=== PATIENT | female | born 1945 | race Caucasian/White ===

== ENCOUNTER 2023-10-29 18:02 | Emergency (ER) | payer MEDICARE, SELFPAY ==
[2023-10-29 18:27] VITALS: BP 198/70; PULSE 74; RESP 18; TEMP 36.7; O2SAT 98; BMI 31.6
--- NOTE | 2023-10-29 18:33 | ED_ITS ---
HPI - Fall General: Chief Complaint: Fall Stated Complaint: Fell Rt Arm Injury Time Seen by Provider: 10/29/23 18:33 History of Present Illness: 78-year-old female comes in today for co mplaints of injury to the right shoulder. Patient had slipped on some wet grass causing her to fall onto her right arm. Patient has decreased range of motion due to pain. Distal pulses are intact. Distal sensation is intact. Patient has a history of coronary artery disease with bypass. Patient does take medications for blood pressure, cholesterol, and Eliquis. Review of Systems General: Reports: 10 or more systems reviewed and unremarkable except in HPI and below Musc: Reports: extremity pain Physical Exam Const: COMMON NORMALS: alert HENMT: COMMON NORMALS: normocephalic HEAD & SCALP: normocephalic Neck/C-Spine: COMMON NORMALS: full ROM Resp: COMMON NORMALS: normal respiratory effort and clear to auscultation bilaterally AUSCULTATION: clear to auscultation bilaterally Cardio: COMMON NORMALS: regular rate and regular rhythm RATE: regular rate RHYTHM: regular rhythm GI: COMMON NORMALS: Soft to palpation PALPATION: Yes Soft to palpation Back/Pelvis: COMMON NORMALS: thoracic and lumbar spine normal to inspection Extremity: RIGHT UPPER EXTREMITY: Yes shoulder joint (Decreased range of motion, anterior tenderness, possible dislocation) Right shoulder: Yes Right shoulder joint inspection exam, Yes palpation, Yes Right shoulder joint ROM exam and Yes Right shoulder joint neurovascular exam Neuro: SENSORIUM/ORIENTATION: Yes alert Skin: COMMON NORMALS: turgor normal GENERAL SKIN EXAM: turgor normal Course Vital Signs: Vital signs: Vital Signs Temperature 98.1 F 10/29/23 18:27 Pulse Rate 74 10/29/23 18:27 Respiratory Rate 20 H 10/29/23 18:56 Blood Pressure 198/70 10/29/23 18:27 Pulse Oximetry 98 10/29/23 18:27 Oxygen Delivery Me thod Room Air 10/29/23 18:27 MDM - Fall Medical Decision Making 78-year-old female comes in today for complaints of injury to the right upper arm. On exam patient has reduced range of motion due to pain. Patient is anterior tenderness of the shoulder. Some deformity is noted in the upper arm shoulder area. Distal pulses and sensation are intact. Differential diagnosis includes fracture, dislocation, sprain, rotator cuff impingement. X-ray notes a surgical neck fracture nondisplaced to the right humerus. Reviewed exam with patient with recommendations for treatment and follow-up with medical sales specialist. Patient reported understanding and agreed to plan. Patient was written a prescription for hydrocodone. All radiology interpretation(s) finalized by discharge Discharge Plan Discharge Patient Disposition: Home Clinical Impression: Right humeral fracture Qualifiers: Encounter type: initial encounter Humerus Location: surgical neck Fracture type: closed Fracture morphology: unspecified fracture morphology Fracture alignment: nondisplaced Qualified Code(s): S42.214A - Unspecified nondisplaced fracture of surgical neck of right humerus, initial encounter for closed fracture Condition: Stable Prescriptions: New hydrocodone-acetaminophen 7.5-325 mg tablet 1 tab PO Q6H PRN (Reason: pain) Qty: 10 0RF Rx Instructions: DX, Humeral fracture Discharge Orders: Discharge ED (Routine); Ordered 10/29/23 Ordered By: Nicolas Silverio Referrals: Reyes Dorado DO [Primary Care Provider] - Discharge Diet: Usual diet Discharge Activity: Increase activity as tolerated Patient Instructions: Opioid Safety, Pain Management Activity Restrictions/Additional Instructions: Follow-up with primary care as needed. You will need to follow-up with a medical sales specialist for further evaluation and treatment of the fracture. Wear sling for comfort and support. Use ice for further pain relief. Drink plenty of water with medications. Return to ED for new concerns. Coding Level of Care Code ED House Detective for Pavel Landrum
--- NOTE | 2023-10-29 18:37 | XRR_ITS ---
PROCEDURE INFORMATION: Exam: XR Right Shoulder Exam date and time: 10/29/2023 6:44 PM Age: 78 years old Clinical indication: Right; Patient HX: RT shoulder pain post fall TECHNIQUE: Imaging protocol: Radiologic exam of the right shoulder. Views: 2 or more views. COMPARISON: No relevant prior studies available. FINDINGS: Bones/joints: Glenohumeral alignment is normal. There is a nondisplaced fracture involving the proximal humerus including the neck and greater tuberosity. No visible scapular or clavicle fracture. Glenohumeral alignment is normal. Lungs: There are indistinct interstitial markings and ground-glass opacity in the right lung. Soft tissues: Unremarkable. XR/XR shoulder RT min 2V* [id number] IMPRESSION: 1. Nondisplaced proximal humeral fracture. No dislocation. 2. Possible pulmonary interstitial edema.
[2023-10-29 18:56] VITALS: RESP 20
[2023-10-29] MEDS: fentaNYL 50 mcg/mL INJ 2mL 86 MCG IVP (18:56)
[2023-10-29 19:25] VITALS: PULSE 92; O2SAT 99
--- NOTE | 2023-10-30 07:25 | DCPLANNER ---
message was sent to ortho for er f/u
== END 2023-10-29 19:27 | disposition home or self-care (01) ==
PROVIDERS: Emergency Provider Nurse Practitioner Family; PCP Internal Medicine
DX: S42.214A Unspecified nondisplaced fracture of surgical neck of right humerus, initial encounter for closed fracture (principal); W01.0XXA Fall on same level from slipping, tripping and stumbling without subsequent striking against object, initial encounter
CPT/HCPCS: 73030; 96374; 99284; J3010